=== PATIENT | female | born 1970 | race Two or more races ===

== ENCOUNTER 2020-08-13 09:45 | Emergency (ER) | payer OTHER ==
[~2020-08-13] VITALS: Ht 157.5 cm; Wt 71.2 kg
[2020-08-13] MEDS ORDERED: SYNTHROID50 MCG (09:57)
== END 2020-08-13 14:11 | disposition home or self-care (01) ==
LOC: ER 09:45
DX: S13.8XXA Sprain of joints and ligaments of other parts of neck, initial encounter (principal); S00.03XA Contusion of scalp, initial encounter; S40.012A Contusion of left shoulder, initial encounter; S50.312A Abrasion of left elbow, initial encounter; S50.812A Abrasion of left forearm, initial encounter; S80.212A Abrasion, left knee, initial encounter; V19.88XA Pedal cyclist (driver) (passenger) injured in other specified transport accidents, initial encounter; Y93.55 Activity, bike riding; Y92.488 Other paved roadways as the place of occurrence of the external cause; Y99.8 Other external cause status

== ENCOUNTER 2020-08-18 10:22 | Emergency (ER) | payer OTHER ==
[~2020-08-18] VITALS: Ht 157.5 cm; Wt 71.2 kg
[~2020-08-18 10:22] MED LIST: SYNTHROID50 MCG
[2020-08-18] MEDS ORDERED: ENALAPRIL MALEAT5 MG (10:50)
[2020-08-18] MEDS ORDERED: MOTION SICKNESS25 M1 PO (17:05)
[2020-08-18] MEDS ORDERED: METOCLOPRAMIDE10 MG PO (17:05)
== END 2020-08-18 17:13 | disposition home or self-care (01) ==
LOC: ER 10:22
DX: R42 Dizziness and giddiness (principal); G89.11 Acute pain due to trauma